=== PATIENT | male | born 1965 | race Two or more races ===

== ENCOUNTER 2022-04-27 10:55 | Emergency (ER) | payer MEDICAID ==
[~2022-04-27] VITALS: Ht 172.7 cm; Wt 68.9 kg
--- NOTE | 2022-04-27 11:13 | NUR ---
BIBS, FAMILY MEMBER PRESENT, NO BM FOR PAST TWO DAYS, HAS HARD TIME PASSING BM PAIN IS IN MID LEFT AB AREA, AND DOWN TO R & L AB AREAS WITH SEVERE PAIN
--- NOTE | 2022-04-27 11:14 | NUR ---
URINE COLLECTED AND SENT TO LAB
--- NOTE | 2022-04-27 11:14 | NUR ---
WENT TO [facility] YESTERDAY WAS PRESCRIBED DICLYCLOMINE 10MG, PO, TID [facility] DID NOT PERFORM ANY X-RAY NOR ANY ULTRA SOUND OR OTHER FAMILY IS REQUESTING SCAN TO DETERMINE PROBLEM, APPEARS TO BE POSSIBLE STOOL BACK UP AT THIS TIME
--- NOTE | 2022-04-27 11:30 | NUR ---
DR DAMIAN AT BEDSIDE FOR EVAL
--- NOTE | 2022-04-27 11:31 | NUR ---
IV LINE ESTABLISHED ON RAC #20, BLOOD DRAWN AND SENT TO LAB
[2022-04-27 11:35] LABS: BASOPHILS % (AUTO) 0.1 % (0.0-2.0); HEMATOCRIT 49 % (39-51); HEMOGLOBIN 16.5 g/dL (13.5-17.5); LYMPHOCYTES # (AUTO) 0.8 K/uL (0.8-4.8); MEAN CORPUSCULAR HGB CONC 34 g/dl (31.0-36.0); MEAN CORPUSCULAR VOLUME 88 fL (80-96); MONOCYTES # (AUTO) 0.7 K/uL (0.1-1.30); MONOCYTES % (AUTO) 5.5 % (2.0-12.0); NEUTROPHILS # (AUTO) 11.4 K/uL (1.8-8.9); NEUTROPHILS % (AUTO) 88.4 % (43.0-81.0); PLATELET COUNT (AUTO) 184 K/uL (150-450); WHITE BLOOD COUNT (AUTO) 12.9 K/uL (4.3-11.0)
[2022-04-27 11:47] LABS: CALCIUM, SERUM 8.6 mg/dL (8.5-10.1); CREATININE 0.9 mg/dL (0.6-1.3)
--- NOTE | 2022-04-27 11:53 | NUR ---
PT TAKEN TO RADIOLOGY
[2022-04-27 12:13] LABS: BILIRUBIN,URINE SMALL (NEGATIVE); COLOR,URINE ORANGE (YELLOW); LEUKOCYTE ESTERASE ,URINE NEGATIVE (NEGATIVE); NITRITE, URINE NEGATIVE (NEGATIVE); PH,URINE 5.5 (5.0-8.0); PROTEIN,URINE TRACE mg/dl (NEGATIVE); UGLUCOSE NEGATIVE (NEGATIVE)
[2022-04-27 12:26] LABS: BACTERIA,URINE 4+ /HPF (None Seen); RBC,URINE 0-2 /HPF (0-2)
[2022-04-27] MEDS ORDERED: MORPHINE SULFATE INJ 4 MG/ML DISP.SYRIN ONE (13:17)
[2022-04-27] MEDS ORDERED: ONDANSETRON HCL/PF 4 MG/2 ML VIAL ONE (13:17)
[2022-04-27] MEDS ORDERED: IV NS 0.9% 1,000 ML BAG IV ONE (13:30)
[2022-04-27] MEDS ORDERED: MORPHINE SULFATE INJ 2 MG/ML DISP.SYRIN IV ONE (13:30)
[2022-04-27] MEDS ORDERED: ONDANSETRON HCL/PF - ER 4 MG/2 ML VIAL IV ONE (13:30)
[2022-04-27 13:55] LABS: BILIRUBIN,DIRECT 0.3 mg/dL (0.0-0.2); BILIRUBIN,TOTAL 1.5 mg/dL (0.2-1.0); TOTAL PROTEIN, SERUM 7.1 g/dL (6.4-8.2)
[2022-04-27 16:24] VITALS: BP 147/92
--- NOTE | 2022-04-27 16:32 | NUR ---
DR. NADJA CONTRERAS.
--- NOTE | 2022-04-27 16:45 | NUR ---
Patient does not wish to proceed with medical care recommended by Dr. Montaño. Patient given information related to possible complications, up to and including , which could occur as a result of leaving the hospital at this time. Patient verbalizes understanding of risks involved due to leaving against medical advice. Patient has signed AMA form.
--- NOTE | 2022-04-27 16:46 | NUR ---
IV removed. Catheter intact and site benign. Pressure and 4x4 applied to site. No bleeding noted.
--- NOTE | 2022-04-27 16:46 | NUR ---
Note basia in ED - 04/27/22 at 1646 by NELIA Patient does not wish to proceed with medical care recommended by Dr. YUMI MCDONALD. Patient given information related to possible complications, up to and including , which could occur as a result of leaving the hospital at this time. Patient verbalizes understanding of risks involved due to leaving against medical advice. Patient's daughter has signed AMA form.
== END 2022-04-27 16:48 | disposition left against medical advice (07) ==
LOC: ER 11:02
DX: K56.609 Unspecified intestinal obstruction, unspecified as to partial versus complete obstruction (principal); Z20.822 Contact with and (suspected) exposure to COVID-19; Z53.29 Procedure and treatment not carried out because of patient's decision for other reasons
CPT/HCPCS: 99285; 74176; 96374; 96361; 96375; 87426; 85025; 80048; 87086; 83690; 80076; 81001; 36415; 85730; J2270; J2405 ×2; J7030; C9803